=== PATIENT | female | born 1935 | race Caucasian/White ===

== ENCOUNTER 2022-10-18 12:06 | Emergency (ER) | payer MEDICARE ==
[~2022-10-18] VITALS: Ht 157.5 cm; Wt 49.9 kg
[2022-10-18] MEDS ORDERED: ACETAMINOPHEN ES 500 MG TABLET PO ONE (13:00)
[2022-10-18 14:52] VITALS: BP 151/65; TEMP 98.4; O2SAT 95
== END 2022-10-18 15:00 | disposition home or self-care (01) ==
LOC: ER 12:15
DX: R51.9 Headache, unspecified (principal); M25.552 Pain in left hip; M54.2 Cervicalgia; I10 Essential (primary) hypertension; W18.30XA Fall on same level, unspecified, initial encounter; Y93.89 Activity, other specified; Y92.512 Supermarket, store or market as the place of occurrence of the external cause; Y99.8 Other external cause status
CPT/HCPCS: 70450-TC; 72125-TC; 73502

== ENCOUNTER 2023-02-01 07:37 | Emergency (ER) | payer MEDICARE ==
[~2023-02-01] VITALS: Ht 157.5 cm; Wt 49.9 kg
[2023-02-01] MEDS ORDERED: hydrALAZINE HCL IV 20 MG VIAL ONE (08:27)
[2023-02-01] MEDS: hydrALAZINE HCL IV 20 MG VIAL IV ONE (08:36)
[2023-02-01] MEDS ORDERED: CYCL5TAB PO (10:03)
[2023-02-01] MEDS: ACETAMINOPHEN ES 500 MG TABLET PO ONE (10:26)
[2023-02-01 11:05] VITALS: BP 231/97; TEMP 98; O2SAT 97
== END 2023-02-01 11:05 | disposition home or self-care (01) ==
LOC: ER 07:39
DX: S00.03XA Contusion of scalp, initial encounter (principal); M54.2 Cervicalgia; M54.6 Pain in thoracic spine; M54.50 Low back pain, unspecified; I10 Essential (primary) hypertension; W18.30XA Fall on same level, unspecified, initial encounter; Y93.89 Activity, other specified; Y92.89 Other specified places as the place of occurrence of the external cause; Y99.8 Other external cause status
CPT/HCPCS: 99285; 72125; 96374; 70450; 72131; 72128; J0360